=== PATIENT | female | born 1960 | race Hispanic/Latino ===

== ENCOUNTER 2020-12-30 10:17 | Inpatient (IN) | payer BC ==
[~2020-12-30] VITALS: Ht 152.4 cm; Wt 57.1 kg
[2020-12-30 10:44] LABS: ABG BASE EXCESS -1.6 mmol/L (-2.0-3.0); ABG HCO3 19.4 mmol/L (21.0-28.0); ABG OXYGEN SATURATION 95.3 % (95.0-99.0); ABG PCO2 25 mmHg (32-45)
[2020-12-30 10:46] LABS: BASOPHILS % (AUTO) 0.2 % (0.0-5.0); EOSINOPHILS % (AUTO) 0.5 % (0.0-8.0); HEMATOCRIT 39.5 % (36-48); LYMPHOCYTES % (AUTO) 1.8 % (21.0-51.0); MEAN CORPUSCULAR HEMOGLOBIN 26.4 pg (27.0-33.0); MEAN CORPUSCULAR HGB CONC 34.9 g/dL (32.0-36.0); MEAN CORPUSCULAR VOLUME 75.7 fL (79-99); MONOCYTES % (AUTO) 2.6 % (3.0-13.0); NEUTROPHILS % (AUTO) 94.2 % (40.0-77.0); PLATELET COUNT (AUTO) 256 K/uL (130-400); RED BLOOD CELL COUNT(AUTO) 5.22 MIL/uL (4.00-5.50); RED CELL DISTRIBUTION WIDTH 13.1 % (11.0-15.5); WHITE BLOOD COUNT (AUTO) 20.4 K/uL (4.8-10.8)
[2020-12-30 11:36] LABS: B-TYPE NATRIURETIC PEPTIDE 127 pg/mL (0-100)
[2020-12-30 11:52] LABS: ALBUMIN 2.5 g/dL (3.5-5.0); BILIRUBIN,TOTAL 1.2 mg/dL (0.2-1.0); CREATININE 0.8 mg/dL (0.5-1.5); TOTAL PROTEIN, SERUM 7.2 g/dL (6.0-8.3)
[2020-12-30 11:56] LABS: TROPONIN I 1.56 ng/mL (0.00-0.06)
[2020-12-30 12:15] LABS: INR 1.15 (0.85-1.15); PARTIAL THROMBOPLASTIN TIME 23.6 SEC (26.3-35.5); PROTHROMBIN TIME 11.9 SEC (9.6-11.6)
[2020-12-30] MEDS ORDERED: DEXAMETHASONE SOD PHOSPHATE 10MG/ML 1ML VIAL ONE (12:42)
[2020-12-30] MEDS ORDERED: ZOSYN 3.375GM+NS 50ML 50 ML IV ONE (12:43)
[2020-12-30] MEDS: CEFTRIAXONE 1G VIAL IVP SCH (13:00)
[2020-12-30] MEDS: PHARMACY COMMUNICATION MISC SCH ×3 (13:00→22:11)
[2020-12-30] MEDS ORDERED: ONDANSETRON 4MG INJ IV PRN (13:00)
[2020-12-30] MEDS ORDERED: LACTULOSE 20 GM/30 ML UDCUP PO PRN (13:00)
[2020-12-30] MEDS ORDERED: DEXAMETHASONE SOD PHOSPHATE 4 MG/ML 1ML VIAL IVP SCH (13:00)
[2020-12-30] MEDS ORDERED: ERGOCALCIFEROL (VITAMIN D2) 50,000 UNIT CAPSULE PO ONE (13:00)
[2020-12-30] MEDS ORDERED: ACETAMINOPHEN 325 MG TAB PO PRN ×2 (13:00)
[2020-12-30] MEDS ORDERED: IOHEXOL 350 MG/ML 100ML INFUS..BTL IV ONE (13:07)
[2020-12-30] MEDS ORDERED: POTASSIUM CHLORIDE 10MEQ/100ML 100 ML IV PRN (13:15)
[2020-12-30] MEDS ORDERED: POTASSIUM CHLORIDE 10% ELIXIR 20 MEQ/15 ML UDCUP PO PRN (13:15)
[2020-12-30] MEDS ORDERED: FUROSEMIDE 20MG VIAL IV SCH (13:15)
[2020-12-30] MEDS ORDERED: LIDOCAINE HCL-MPF 1% 2ML VIAL IV PRN (13:15)
[2020-12-30 13:16] LABS: APPEARANCE,URINE Clear (CLEAR); BILIRUBIN,URINE Negative (NEGATIVE); COLOR,URINE Yellow (YELLOW); GLUCOSE, URINE (UA) 500 mg/dL (NEGATIVE); KETONES,URINE Negative (NEGATIVE); LEUKOCYTE ESTERASE ,URINE Negative (NEGATIVE); NITRATE,URINE Negative (NEGATIVE); OCCULT BLOOD,URINE Moderate (NEGATIVE); PH,URINE 6.5 (5.0-8.0); PROTEIN,URINE POS 2+ mg/dL (NEGATIVE)
[2020-12-30 13:22] LABS: BACTERIA,URINE Rare /HPF (None Seen); RBC,URINE 0-1 /HPF (0-1); SQUAMOUS EPITHELIAL CELL,UR Rare /HPF (0-2); WBC,URINE 0-1 /HPF (0-1)
[2020-12-30] MEDS: ZINC SULFATE 220 CAPSULE PO SCH (13:30)
[2020-12-30 13:38] LABS: THYROID STIMULATING HORMONE 0.49 uIU/mL (0.36-3.74)
[2020-12-30 13:50] LABS: HEMOGLOBIN A1C 6.2 % (4.0-6.0)
[2020-12-30] MEDS ORDERED: FUROSEMIDE 20MG VIAL ONE (14:16)
[2020-12-30] MEDS ORDERED: CEFTRIAXONE 1G VIAL ONE (14:17)
[2020-12-30] MEDS ORDERED: ZINC SULFATE 220 CAPSULE ONE (14:17)
[2020-12-30] MEDS ORDERED: ASPIRIN 81MG CHEW TAB PO SCH (15:45)
[2020-12-30] MEDS ORDERED: PHARMACY COMMUNICATION MISC SCH (15:45)
[2020-12-30 16:22] LABS: CREATININE 0.8 mg/dL (0.5-1.5); POTASSIUM 3.5 mmol/L (3.5-5.1)
[2020-12-30] MEDS ORDERED: ASPIRIN 81MG CHEW TAB ONE (16:42)
[2020-12-30] MEDS ORDERED: ENOXAPARIN SODIUM 60 MG/0.6 ML SQ ONE (17:00)
[2020-12-30 17:15] VITALS: BP 111/56
[2020-12-30] MEDS: DEXAMETHASONE SOD PHOSPHATE 4 MG/ML 1ML VIAL IVP SCH (17:35)
[2020-12-30 20:00] VITALS: BP 107/52
[2020-12-30] MEDS: METOPROLOL TARTRATE 25 MG TAB PO SCH (22:14)
[2020-12-30] MEDS: FAMOTIDINE 20MG TAB PO SCH (22:14)
[2020-12-31] VITALS: BP 104/54
[2020-12-31] MEDS: PHARMACY COMMUNICATION MISC SCH ×6 (01:00→21:00)
[2020-12-31] MEDS: CEFTRIAXONE 1G VIAL IVP SCH ×2 (01:27→13:01)
[2020-12-31] MEDS: DEXAMETHASONE SOD PHOSPHATE 4 MG/ML 1ML VIAL IVP SCH ×2 (01:42→06:32)
[2020-12-31 04:00] VITALS: BP 117/60
[2020-12-31 04:59] LABS: BASOPHILS % (AUTO) 0.1 % (0.0-5.0); HEMATOCRIT 39.3 % (36-48); LYMPHOCYTES % (AUTO) 3.2 % (21.0-51.0); MEAN CORPUSCULAR HEMOGLOBIN 26.9 pg (27.0-33.0); MEAN CORPUSCULAR HGB CONC 35.1 g/dL (32.0-36.0); MEAN CORPUSCULAR VOLUME 76.6 fL (79-99); MONOCYTES % (AUTO) 3.7 % (3.0-13.0); NEUTROPHILS % (AUTO) 92.5 % (40.0-77.0); PLATELET COUNT (AUTO) 277 K/uL (130-400); RED BLOOD CELL COUNT(AUTO) 5.13 MIL/uL (4.00-5.50); RED CELL DISTRIBUTION WIDTH 13.4 % (11.0-15.5); WHITE BLOOD COUNT (AUTO) 14.3 K/uL (4.8-10.8)
[2020-12-31 05:22] LABS: ALBUMIN 2.3 g/dL (3.5-5.0); BILIRUBIN,TOTAL 0.6 mg/dL (0.2-1.0); CREATININE 0.8 mg/dL (0.5-1.5); POTASSIUM 3.2 mmol/L (3.5-5.1)
[2020-12-31 05:47] LABS: CRP QUANTITATIVE 329.3 mg/L (0.00-9.0)
[2020-12-31 08:17] VITALS: BP 122/55
[2020-12-31] MEDS: ASPIRIN 81MG CHEW TAB PO SCH (08:36)
[2020-12-31] MEDS: METOPROLOL TARTRATE 25 MG TAB PO SCH ×2 (08:36→20:15)
[2020-12-31] MEDS: FAMOTIDINE 20MG TAB PO SCH ×2 (08:36→20:11)
[2020-12-31] MEDS: ZINC SULFATE 220 CAPSULE PO SCH (08:36)
[2020-12-31] MEDS: ASCORBIC ACID 500 MG TAB PO SCH (08:36)
[2020-12-31] MEDS ORDERED: ENOXAPARIN SODIUM 60 MG/0.6 ML SQ SCH (09:00)
[2020-12-31] MEDS ORDERED: ENOXAPARIN SODIUM 40 MG/0.4 ML SYRINGE SQ SCH (09:00)
[2020-12-31] MEDS: KCL 20 MEQ ERTAB PO PRN ×3 (11:23→20:16)
[2020-12-31] MEDS ORDERED: TOCILIZUMAB IV ONE ×2 (11:45)
[2020-12-31] MEDS ORDERED: [UNRECOGNIZED DRUG - OTHER] IV ONE (11:45)
[2020-12-31] MEDS ORDERED: [UNRECOGNIZED DRUG - OTHER] IV ONE (11:45)
[2020-12-31 12:00] VITALS: BP 113/55
[2020-12-31] MEDS ORDERED: COMPOUND IV REFRIGERATED 1 EACH IVSOLN MISC PRN (14:00)
[2020-12-31] MEDS ORDERED: REMDESIVIR (EUA) 520 200 MG in 0.9% NACL 250ML 250 ML IV ONE (14:00)
[2020-12-31 16:14] VITALS: BP 106/50
[2020-12-31 20:00] VITALS: BP 99/52
[2020-12-31] MEDS: DOXYCYCLINE HYCLATE 100 MG TABLET PO SCH (20:11)
[2020-12-31] MEDS: ENOXAPARIN SODIUM 60 MG/0.6 ML SQ SCH (20:14)
[2020-12-31] MEDS ORDERED: DEXAMETHASONE SOD PHOSPHATE 4 MG/ML 1ML VIAL IVP SCH (21:00)
[2021-01-01] VITALS: BP 115/54
[2021-01-01] MEDS: PHARMACY COMMUNICATION MISC SCH ×6 (01:00→21:00)
[2021-01-01] MEDS: CEFTRIAXONE 1G VIAL IVP SCH ×3 (01:55→23:53)
[2021-01-01 04:00] VITALS: BP 109/49
[2021-01-01 05:14] LABS: BASOPHILS % (AUTO) 0.1 % (0.0-5.0); HEMATOCRIT 39.4 % (36-48); LYMPHOCYTES % (AUTO) 5.1 % (21.0-51.0); MEAN CORPUSCULAR HEMOGLOBIN 25.8 pg (27.0-33.0); MEAN CORPUSCULAR VOLUME 78.3 fL (79-99); MONOCYTES % (AUTO) 4.9 % (3.0-13.0); NEUTROPHILS % (AUTO) 88.9 % (40.0-77.0); PLATELET COUNT (AUTO) 323 K/uL (130-400); RED BLOOD CELL COUNT(AUTO) 5.03 MIL/uL (4.00-5.50); RED CELL DISTRIBUTION WIDTH 13.6 % (11.0-15.5); WHITE BLOOD COUNT (AUTO) 13.6 K/uL (4.8-10.8)
[2021-01-01 05:43] LABS: ALBUMIN 2.2 g/dL (3.5-5.0); BILIRUBIN,TOTAL 0.5 mg/dL (0.2-1.0); CREATININE 0.7 mg/dL (0.5-1.5); CRP QUANTITATIVE 152.8 mg/L (0.00-9.0); POTASSIUM 3.3 mmol/L (3.5-5.1); TOTAL PROTEIN, SERUM 6.5 g/dL (6.0-8.3)
[2021-01-01] MEDS: REMDESIVIR LABS MISC SCH (06:00)
[2021-01-01 08:00] VITALS: BP 116/59
[2021-01-01] MEDS: ZINC SULFATE 220 CAPSULE PO SCH (08:19)
[2021-01-01] MEDS: KCL 20 MEQ ERTAB PO PRN ×2 (08:19→12:41)
[2021-01-01] MEDS: DEXAMETHASONE SOD PHOSPHATE 4 MG/ML 1ML VIAL IV SCH ×2 (08:19→21:41)
[2021-01-01] MEDS: FAMOTIDINE 20MG TAB PO SCH ×2 (08:19→21:40)
[2021-01-01] MEDS: ASPIRIN 81MG CHEW TAB PO SCH (08:19)
[2021-01-01] MEDS: ASCORBIC ACID 500 MG TAB PO SCH (08:19)
[2021-01-01] MEDS: ENOXAPARIN SODIUM 60 MG/0.6 ML SQ SCH ×2 (08:20→21:41)
[2021-01-01] MEDS: DOXYCYCLINE HYCLATE 100 MG TABLET PO SCH ×2 (08:20→21:40)
[2021-01-01] MEDS: METOPROLOL TARTRATE 25 MG TAB PO SCH ×2 (08:25→21:40)
[2021-01-01] MEDS ORDERED: DEXAMETHASONE SOD PHOSPHATE 4 MG/ML 1ML VIAL IV SCH (09:00)
[2021-01-01 12:00] VITALS: BP 102/53
[2021-01-01] MEDS ORDERED: POTASSIUM CHLORIDE 20MEQ/100ML 100 ML IV PRN (14:15)
[2021-01-01] MEDS ORDERED: LIDOCAINE HCL-MPF 1% 2ML VIAL IV PRN (14:15)
[2021-01-01] MEDS ORDERED: KCL 20 MEQ ERTAB PO PRN (14:15)
[2021-01-01] MEDS ORDERED: POTASSIUM CHLORIDE 10% ELIXIR 20 MEQ/15 ML UDCUP PO PRN (14:15)
[2021-01-01 16:00] VITALS: BP 111/55
[2021-01-01 20:00] VITALS: BP 113/64
[2021-01-02] VITALS (8 sets, daily range): BP systolic 100–145; BP diastolic 40–85
[2021-01-02] MEDS: PHARMACY COMMUNICATION MISC SCH ×6 (01:00→21:00)
[2021-01-02 03:09] LABS: HEPATITIS B CORE IGM Negative (Negative); HEPATITIS Bs ANTIGEN SCREEN P Negative (Negative)
[2021-01-02 04:36] LABS: BASOPHILS % (AUTO) 0.2 % (0.0-5.0); HEMATOCRIT 40.4 % (36-48); LYMPHOCYTES % (AUTO) 3.5 % (21.0-51.0); MEAN CORPUSCULAR HEMOGLOBIN 26.7 pg (27.0-33.0); MEAN CORPUSCULAR HGB CONC 33.2 g/dL (32.0-36.0); MEAN CORPUSCULAR VOLUME 80.5 fL (79-99); MONOCYTES % (AUTO) 3.3 % (3.0-13.0); NEUTROPHILS % (AUTO) 92.2 % (40.0-77.0); PLATELET COUNT (AUTO) 358 K/uL (130-400); RED BLOOD CELL COUNT(AUTO) 5.02 MIL/uL (4.00-5.50); WHITE BLOOD COUNT (AUTO) 14.4 K/uL (4.8-10.8)
[2021-01-02 04:48] LABS: ALBUMIN 2.2 g/dL (3.5-5.0); BILIRUBIN,TOTAL 0.5 mg/dL (0.2-1.0); CREATININE 0.7 mg/dL (0.5-1.5); CRP QUANTITATIVE 100.3 mg/L (0.00-9.0); MAGNESIUM 2.5 mg/dL (1.80-2.40); POTASSIUM 4.4 mmol/L (3.5-5.1); TOTAL PROTEIN, SERUM 6.5 g/dL (6.0-8.3)
[2021-01-02] MEDS: REMDESIVIR LABS MISC SCH (06:00)
[2021-01-02] MEDS: ENOXAPARIN SODIUM 60 MG/0.6 ML SQ SCH ×2 (08:18→21:28)
[2021-01-02] MEDS: ASCORBIC ACID 500 MG TAB PO SCH (08:19)
[2021-01-02] MEDS: METOPROLOL TARTRATE 25 MG TAB PO SCH ×2 (08:19→21:28)
[2021-01-02] MEDS: FAMOTIDINE 20MG TAB PO SCH ×2 (08:19→21:25)
[2021-01-02] MEDS: DEXAMETHASONE SOD PHOSPHATE 4 MG/ML 1ML VIAL IV SCH ×2 (08:19→21:25)
[2021-01-02] MEDS: ZINC SULFATE 220 CAPSULE PO SCH (08:19)
[2021-01-02] MEDS: DOXYCYCLINE HYCLATE 100 MG TABLET PO SCH ×2 (08:19→21:25)
[2021-01-02] MEDS: ASPIRIN 81MG CHEW TAB PO SCH (08:20)
[2021-01-02] MEDS: CEFTRIAXONE 1G VIAL IVP SCH (12:19)
[2021-01-02] MEDS: REMDESIVIR (EUA) 520 100 MG in 0.9% NACL 250ML 250 ML IV SCH (14:08)
[2021-01-03] MEDS: PHARMACY COMMUNICATION MISC SCH ×6 (01:00→21:00)
[2021-01-03] MEDS: CEFTRIAXONE 1G VIAL IVP SCH ×2 (01:28→14:16)
[2021-01-03 04:12] VITALS: BP 139/81
[2021-01-03 05:01] LABS: ALBUMIN 2.3 g/dL (3.5-5.0); BILIRUBIN,TOTAL 0.4 mg/dL (0.2-1.0); CREATININE 0.7 mg/dL (0.5-1.5); CRP QUANTITATIVE 75.3 mg/L (0.00-9.0); POTASSIUM 4.9 mmol/L (3.5-5.1); TOTAL PROTEIN, SERUM 6.8 g/dL (6.0-8.3)
[2021-01-03] MEDS: REMDESIVIR LABS MISC SCH (06:00)
[2021-01-03] MEDS ORDERED: AMLODIPINE 5 MG TAB ONE (07:05)
[2021-01-03 07:46] VITALS: BP 118/54
[2021-01-03] MEDS: ZINC SULFATE 220 CAPSULE PO SCH (08:34)
[2021-01-03] MEDS: DEXAMETHASONE SOD PHOSPHATE 4 MG/ML 1ML VIAL IV SCH ×2 (08:34→22:04)
[2021-01-03] MEDS: ASCORBIC ACID 500 MG TAB PO SCH (08:34)
[2021-01-03] MEDS: ASPIRIN 81MG CHEW TAB PO SCH (08:34)
[2021-01-03] MEDS: DOXYCYCLINE HYCLATE 100 MG TABLET PO SCH ×2 (08:34→22:04)
[2021-01-03] MEDS: ENOXAPARIN SODIUM 60 MG/0.6 ML SQ SCH ×2 (08:34→22:08)
[2021-01-03] MEDS: FAMOTIDINE 20MG TAB PO SCH ×2 (08:34→22:04)
[2021-01-03] MEDS: METOPROLOL TARTRATE 25 MG TAB PO SCH ×2 (08:34→22:04)
[2021-01-03 12:00] VITALS: BP 101/49
[2021-01-03] MEDS: REMDESIVIR (EUA) 520 100 MG in 0.9% NACL 250ML 250 ML IV SCH (14:17)
[2021-01-03 16:00] VITALS: BP 112/58
[2021-01-03 20:53] VITALS: BP 133/62
[2021-01-03 23:55] VITALS: BP 123/64
[2021-01-04] MEDS: CEFTRIAXONE 1G VIAL IVP SCH ×2 (02:30→13:18)
[2021-01-04 03:51] VITALS: BP 102/55
[2021-01-04 06:36] LABS: BASOPHILS % (AUTO) 0.2 % (0.0-5.0); MEAN CORPUSCULAR HEMOGLOBIN 25.8 pg (27.0-33.0); MEAN CORPUSCULAR HGB CONC 32.3 g/dL (32.0-36.0); MEAN CORPUSCULAR VOLUME 79.8 fL (79-99); MONOCYTES % (AUTO) 2.9 % (3.0-13.0); NEUTROPHILS % (AUTO) 91.5 % (40.0-77.0); PLATELET COUNT (AUTO) 551 K/uL (130-400); RED BLOOD CELL COUNT(AUTO) 5.39 MIL/uL (4.00-5.50); RED CELL DISTRIBUTION WIDTH 13.9 % (11.0-15.5); WHITE BLOOD COUNT (AUTO) 16.2 K/uL (4.8-10.8)
[2021-01-04 07:01] LABS: ALBUMIN 2.4 g/dL (3.5-5.0); BILIRUBIN,TOTAL 0.4 mg/dL (0.2-1.0); CREATININE 0.6 mg/dL (0.5-1.5); POTASSIUM 4.4 mmol/L (3.5-5.1); TOTAL PROTEIN, SERUM 6.6 g/dL (6.0-8.3)
[2021-01-04] MEDS: DEXAMETHASONE SOD PHOSPHATE 4 MG/ML 1ML VIAL IV SCH ×2 (08:00→21:37)
[2021-01-04] MEDS: METOPROLOL TARTRATE 25 MG TAB PO SCH ×2 (08:01→21:36)
[2021-01-04] MEDS: FAMOTIDINE 20MG TAB PO SCH ×2 (08:01→21:36)
[2021-01-04] MEDS: DOXYCYCLINE HYCLATE 100 MG TABLET PO SCH ×2 (08:01→21:36)
[2021-01-04] MEDS: ASPIRIN 81MG CHEW TAB PO SCH (08:01)
[2021-01-04] MEDS: ENOXAPARIN SODIUM 60 MG/0.6 ML SQ SCH ×2 (08:02→21:37)
[2021-01-04] MEDS: ZINC SULFATE 220 CAPSULE PO SCH (08:02)
[2021-01-04] MEDS: ASCORBIC ACID 500 MG TAB PO SCH (08:02)
[2021-01-04 09:23] VITALS: BP 126/57
[2021-01-04 11:59] VITALS: BP 101/55
[2021-01-04] MEDS: REMDESIVIR (EUA) 520 100 MG in 0.9% NACL 250ML 250 ML IV SCH (13:18)
[2021-01-04 16:00] VITALS: BP 112/57
[2021-01-04 19:00] VITALS: BP 104/64
[2021-01-04 23:00] VITALS: BP 128/69
[2021-01-05] MEDS: CEFTRIAXONE 1G VIAL IVP SCH ×2 (02:13→13:16)
[2021-01-05 07:52] VITALS: BP 99/56
[2021-01-05] MEDS: DOXYCYCLINE HYCLATE 100 MG TABLET PO SCH ×2 (10:15→20:06)
[2021-01-05] MEDS: ASCORBIC ACID 500 MG TAB PO SCH (10:15)
[2021-01-05] MEDS: ENOXAPARIN SODIUM 60 MG/0.6 ML SQ SCH ×2 (10:15→20:07)
[2021-01-05] MEDS: FAMOTIDINE 20MG TAB PO SCH ×2 (10:15→20:06)
[2021-01-05] MEDS: ZINC SULFATE 220 CAPSULE PO SCH (10:16)
[2021-01-05] MEDS: ASPIRIN 81MG CHEW TAB PO SCH (10:16)
[2021-01-05] MEDS: DEXAMETHASONE SOD PHOSPHATE 4 MG/ML 1ML VIAL IV SCH ×2 (10:16→20:06)
[2021-01-05] MEDS: METOPROLOL TARTRATE 25 MG TAB PO SCH ×2 (10:16→20:06)
[2021-01-05 12:00] VITALS: BP 115/58
[2021-01-05 13:57] LABS: ALBUMIN 2.3 g/dL (3.5-5.0); BILIRUBIN,TOTAL 0.3 mg/dL (0.2-1.0); CREATININE 0.6 mg/dL (0.5-1.5); POTASSIUM 4.2 mmol/L (3.5-5.1); TOTAL PROTEIN, SERUM 6.3 g/dL (6.0-8.3)
[2021-01-05 16:31] VITALS: BP 112/53
[2021-01-05 19:00] VITALS: BP 104/66
[2021-01-05 23:00] VITALS: BP 95/50
[2021-01-06] MEDS: CEFTRIAXONE 1G VIAL IVP SCH (01:55)
[2021-01-06 03:00] VITALS: BP 113/55
[2021-01-06 06:39] LABS: CRP QUANTITATIVE 184.9 mg/L (0.00-9.0)
[2021-01-06 07:00] VITALS: BP 131/57
[2021-01-06] MEDS: ZINC SULFATE 220 CAPSULE PO SCH (08:59)
[2021-01-06] MEDS: ASPIRIN 81MG CHEW TAB PO SCH (08:59)
[2021-01-06] MEDS: DOXYCYCLINE HYCLATE 100 MG TABLET PO SCH ×2 (08:59→21:38)
[2021-01-06] MEDS: ASCORBIC ACID 500 MG TAB PO SCH (08:59)
[2021-01-06] MEDS: ENOXAPARIN SODIUM 60 MG/0.6 ML SQ SCH ×2 (09:00→21:44)
[2021-01-06] MEDS: METOPROLOL TARTRATE 25 MG TAB PO SCH ×2 (09:00→21:38)
[2021-01-06] MEDS: FAMOTIDINE 20MG TAB PO SCH ×2 (09:00→21:38)
[2021-01-06] MEDS: DEXAMETHASONE SOD PHOSPHATE 4 MG/ML 1ML VIAL IV SCH ×2 (09:00→21:38)
[2021-01-06 11:00] VITALS: BP 118/57
[2021-01-06 16:00] VITALS: BP 107/60
[2021-01-06] MEDS ORDERED: SOLU-MEDROL 125MG VIAL IV SCH (16:51)
[2021-01-06 19:36] VITALS: BP 126/58
[2021-01-06] MEDS: CLONAZEPAM 0.5 MG TABLET PO SCH (21:38)
[2021-01-06 23:29] VITALS: BP 119/65
[2021-01-07 03:02] VITALS: BP 117/62
[2021-01-07 04:46] LABS: BASOPHILS % (AUTO) 0.1 % (0.0-5.0); HEMATOCRIT 38.7 % (36-48); LYMPHOCYTES % (AUTO) 4.8 % (21.0-51.0); MEAN CORPUSCULAR HEMOGLOBIN 26.9 pg (27.0-33.0); MEAN CORPUSCULAR HGB CONC 33.9 g/dL (32.0-36.0); MEAN CORPUSCULAR VOLUME 79.5 fL (79-99); MONOCYTES % (AUTO) 2.9 % (3.0-13.0); PLATELET COUNT (AUTO) 457 K/uL (130-400); RED BLOOD CELL COUNT(AUTO) 4.87 MIL/uL (4.00-5.50); RED CELL DISTRIBUTION WIDTH 14.3 % (11.0-15.5); WHITE BLOOD COUNT (AUTO) 7.6 K/uL (4.8-10.8)
[2021-01-07 05:04] LABS: BILIRUBIN,TOTAL 0.4 mg/dL (0.2-1.0); CREATININE 0.5 mg/dL (0.5-1.5); CRP QUANTITATIVE 114.3 mg/L (0.00-9.0); POTASSIUM 4.5 mmol/L (3.5-5.1); TOTAL PROTEIN, SERUM 6.1 g/dL (6.0-8.3)
[2021-01-07 07:00] VITALS: BP 125/70
[2021-01-07] MEDS: FAMOTIDINE 20MG TAB PO SCH ×2 (09:13→20:12)
[2021-01-07] MEDS: METOPROLOL TARTRATE 25 MG TAB PO SCH ×2 (09:13→20:13)
[2021-01-07] MEDS: CLONAZEPAM 0.5 MG TABLET PO SCH ×2 (09:13→20:12)
[2021-01-07] MEDS: DEXAMETHASONE SOD PHOSPHATE 4 MG/ML 1ML VIAL IV SCH (09:13)
[2021-01-07] MEDS: DOXYCYCLINE HYCLATE 100 MG TABLET PO SCH ×2 (09:13→20:12)
[2021-01-07] MEDS: ASPIRIN 81MG CHEW TAB PO SCH (09:13)
[2021-01-07] MEDS: ASCORBIC ACID 500 MG TAB PO SCH (09:13)
[2021-01-07] MEDS: ZINC SULFATE 220 CAPSULE PO SCH (09:13)
[2021-01-07] MEDS: ENOXAPARIN SODIUM 60 MG/0.6 ML SQ SCH ×2 (09:14→20:13)
[2021-01-07 11:00] VITALS: BP 111/53
[2021-01-07 16:00] VITALS: BP 109/54
[2021-01-07 19:10] VITALS: BP 119/66
[2021-01-07] MEDS: SOLU-MEDROL 125MG VIAL IVP SCH (20:13)
[2021-01-07 23:14] VITALS: BP 109/61
[2021-01-08 03:44] VITALS: BP 116/66
[2021-01-08 06:09] LABS: BASOPHILS % (AUTO) 0.1 % (0.0-5.0); HEMATOCRIT 39.5 % (36-48); LYMPHOCYTES % (AUTO) 4.3 % (21.0-51.0); MEAN CORPUSCULAR HEMOGLOBIN 26.7 pg (27.0-33.0); MEAN CORPUSCULAR HGB CONC 33.2 g/dL (32.0-36.0); MEAN CORPUSCULAR VOLUME 80.6 fL (79-99); MONOCYTES % (AUTO) 1.8 % (3.0-13.0); NEUTROPHILS % (AUTO) 92.5 % (40.0-77.0); PLATELET COUNT (AUTO) 456 K/uL (130-400); RED CELL DISTRIBUTION WIDTH 14.3 % (11.0-15.5); WHITE BLOOD COUNT (AUTO) 9.5 K/uL (4.8-10.8)
[2021-01-08 06:14] LABS: ALBUMIN 2.1 g/dL (3.5-5.0); BILIRUBIN,TOTAL 0.4 mg/dL (0.2-1.0); CREATININE 0.6 mg/dL (0.5-1.5); POTASSIUM 4.6 mmol/L (3.5-5.1); TOTAL PROTEIN, SERUM 6.1 g/dL (6.0-8.3)
[2021-01-08 08:00] VITALS: BP 107/61
[2021-01-08] MEDS: FAMOTIDINE 20MG TAB PO SCH (09:27)
[2021-01-08] MEDS: CLONAZEPAM 0.5 MG TABLET PO SCH ×2 (09:27→21:35)
[2021-01-08] MEDS: ASPIRIN 81MG CHEW TAB PO SCH (09:27)
[2021-01-08] MEDS: ASCORBIC ACID 500 MG TAB PO SCH (09:27)
[2021-01-08] MEDS: ZINC SULFATE 220 CAPSULE PO SCH (09:27)
[2021-01-08] MEDS: METOPROLOL TARTRATE 25 MG TAB PO SCH ×2 (09:27→21:34)
[2021-01-08] MEDS: DOXYCYCLINE HYCLATE 100 MG TABLET PO SCH (09:27)
[2021-01-08] MEDS: SOLU-MEDROL 125MG VIAL IVP SCH (09:28)
[2021-01-08] MEDS: ENOXAPARIN SODIUM 60 MG/0.6 ML SQ SCH (09:28)
[2021-01-08 12:11] VITALS: BP 116/58
[2021-01-08 16:00] VITALS: BP 106/54
[2021-01-08 20:00] VITALS: BP 116/59
[2021-01-08] MEDS: DEXAMETHASONE SOD PHOSPHATE 4 MG/ML 1ML VIAL IVP SCH (21:35)
[2021-01-09] VITALS: BP 110/54
[2021-01-09 04:00] VITALS: BP 110/53
[2021-01-09 04:31] LABS: BASOPHILS % (AUTO) 0.1 % (0.0-5.0); HEMATOCRIT 40.2 % (36-48); LYMPHOCYTES % (AUTO) 4.7 % (21.0-51.0); MEAN CORPUSCULAR HEMOGLOBIN 26.6 pg (27.0-33.0); MEAN CORPUSCULAR HGB CONC 33.3 g/dL (32.0-36.0); MEAN CORPUSCULAR VOLUME 79.9 fL (79-99); MONOCYTES % (AUTO) 3.7 % (3.0-13.0); NEUTROPHILS % (AUTO) 90.1 % (40.0-77.0); PLATELET COUNT (AUTO) 493 K/uL (130-400); RED BLOOD CELL COUNT(AUTO) 5.03 MIL/uL (4.00-5.50); RED CELL DISTRIBUTION WIDTH 14.1 % (11.0-15.5); WHITE BLOOD COUNT (AUTO) 13.6 K/uL (4.8-10.8)
[2021-01-09 04:48] LABS: ALBUMIN 2.2 g/dL (3.5-5.0); BILIRUBIN,TOTAL 0.4 mg/dL (0.2-1.0); CREATININE 0.6 mg/dL (0.5-1.5); CRP QUANTITATIVE 23.6 mg/L (0.00-9.0); POTASSIUM 4.4 mmol/L (3.5-5.1); TOTAL PROTEIN, SERUM 6.1 g/dL (6.0-8.3)
[2021-01-09 08:00] VITALS: BP 110/54
[2021-01-09] MEDS: DEXAMETHASONE SOD PHOSPHATE 4 MG/ML 1ML VIAL IVP SCH ×2 (08:20→20:03)
[2021-01-09] MEDS: ENOXAPARIN SODIUM 60 MG/0.6 ML SQ SCH (08:21)
[2021-01-09] MEDS: ASPIRIN 81MG CHEW TAB PO SCH (08:21)
[2021-01-09] MEDS: METOPROLOL TARTRATE 25 MG TAB PO SCH ×2 (08:21→20:03)
[2021-01-09] MEDS: CLONAZEPAM 0.5 MG TABLET PO SCH (08:21)
[2021-01-09 11:50] VITALS: BP 109/50
[2021-01-09 15:47] VITALS: BP 104/54
[2021-01-09 20:00] VITALS: BP 115/70
[2021-01-10] VITALS (7 sets, daily range): BP systolic 107–128; BP diastolic 46–74
[2021-01-10 04:56] LABS: BASOPHILS % (AUTO) 0.1 % (0.0-5.0); HEMATOCRIT 44.7 % (36-48); LYMPHOCYTES % (AUTO) 4.5 % (21.0-51.0); MEAN CORPUSCULAR HEMOGLOBIN 26.1 pg (27.0-33.0); MEAN CORPUSCULAR HGB CONC 32.7 g/dL (32.0-36.0); MONOCYTES % (AUTO) 3.2 % (3.0-13.0); NEUTROPHILS % (AUTO) 90.8 % (40.0-77.0); PLATELET COUNT (AUTO) 497 K/uL (130-400); RED BLOOD CELL COUNT(AUTO) 5.59 MIL/uL (4.00-5.50); RED CELL DISTRIBUTION WIDTH 13.7 % (11.0-15.5); WHITE BLOOD COUNT (AUTO) 15.2 K/uL (4.8-10.8)
[2021-01-10 05:12] LABS: ALBUMIN 2.5 g/dL (3.5-5.0); BILIRUBIN,TOTAL 0.5 mg/dL (0.2-1.0); CREATININE 0.5 mg/dL (0.5-1.5); CRP QUANTITATIVE 14.2 mg/L (0.00-9.0); POTASSIUM 4.1 mmol/L (3.5-5.1); TOTAL PROTEIN, SERUM 6.7 g/dL (6.0-8.3)
[2021-01-10] MEDS: ASPIRIN 81MG CHEW TAB PO SCH (08:32)
[2021-01-10] MEDS: ENOXAPARIN SODIUM 60 MG/0.6 ML SQ SCH (08:32)
[2021-01-10] MEDS: METOPROLOL TARTRATE 25 MG TAB PO SCH ×2 (08:32→20:13)
[2021-01-10] MEDS: DEXAMETHASONE SOD PHOSPHATE 4 MG/ML 1ML VIAL IVP SCH ×2 (08:33→20:13)
[2021-01-11 03:02] VITALS: BP 120/64
[2021-01-11 04:21] LABS: BASOPHILS % (AUTO) 0.1 % (0.0-5.0); HEMATOCRIT 40.4 % (36-48); LYMPHOCYTES % (AUTO) 4.2 % (21.0-51.0); MEAN CORPUSCULAR HEMOGLOBIN 26.1 pg (27.0-33.0); MEAN CORPUSCULAR HGB CONC 32.7 g/dL (32.0-36.0); MONOCYTES % (AUTO) 3.8 % (3.0-13.0); NEUTROPHILS % (AUTO) 90.9 % (40.0-77.0); PLATELET COUNT (AUTO) 382 K/uL (130-400); RED BLOOD CELL COUNT(AUTO) 5.05 MIL/uL (4.00-5.50); RED CELL DISTRIBUTION WIDTH 13.8 % (11.0-15.5); WHITE BLOOD COUNT (AUTO) 14.2 K/uL (4.8-10.8)
[2021-01-11 04:39] LABS: ALBUMIN 2.3 g/dL (3.5-5.0); BILIRUBIN,TOTAL 0.4 mg/dL (0.2-1.0); CREATININE 0.5 mg/dL (0.5-1.5); TOTAL PROTEIN, SERUM 5.8 g/dL (6.0-8.3)
[2021-01-11 08:00] VITALS: BP 122/70
[2021-01-11] MEDS: ASPIRIN 81MG CHEW TAB PO SCH (08:35)
[2021-01-11] MEDS: DEXAMETHASONE SOD PHOSPHATE 4 MG/ML 1ML VIAL IVP SCH ×2 (08:35→20:20)
[2021-01-11] MEDS: METOPROLOL TARTRATE 25 MG TAB PO SCH ×2 (08:36→20:20)
[2021-01-11] MEDS: ENOXAPARIN SODIUM 60 MG/0.6 ML SQ SCH (08:36)
[2021-01-11 11:53] VITALS: BP 110/49
[2021-01-11 16:00] VITALS: BP 112/69
[2021-01-11 19:06] VITALS: BP 104/55
[2021-01-11 23:56] VITALS: BP 97/46
[2021-01-12 03:31] VITALS: BP 110/67
[2021-01-12 05:04] LABS: HEMATOCRIT 38.1 % (36-48); MEAN CORPUSCULAR HEMOGLOBIN 26.8 pg (27.0-33.0); MEAN CORPUSCULAR HGB CONC 33.9 g/dL (32.0-36.0); MEAN CORPUSCULAR VOLUME 79.2 fL (79-99); RED BLOOD CELL COUNT(AUTO) 4.81 MIL/uL (4.00-5.50); RED CELL DISTRIBUTION WIDTH 13.8 % (11.0-15.5); WHITE BLOOD COUNT (AUTO) 15.1 K/uL (4.8-10.8)
[2021-01-12 05:20] LABS: ALBUMIN 2.2 g/dL (3.5-5.0); BILIRUBIN,TOTAL 0.5 mg/dL (0.2-1.0); CREATININE 0.5 mg/dL (0.5-1.5); CRP QUANTITATIVE 7.2 mg/L (0.00-9.0); MAGNESIUM 2.3 mg/dL (1.80-2.40); PHOSPHORUS 3.9 mg/dL (2.5-4.9); POTASSIUM 4.1 mmol/L (3.5-5.1); TOTAL PROTEIN, SERUM 5.7 g/dL (6.0-8.3)
[2021-01-12 07:00] VITALS: BP_SYST 104; BP_SYST 114; BP_DIAS 72; BP_DIAS 98
[2021-01-12] MEDS ORDERED: DEXAMETHASONE SOD PHOSPHATE 4 MG/ML 1ML VIAL IVP SCH (08:30)
[2021-01-12] MEDS: ASPIRIN 81MG CHEW TAB PO SCH (08:34)
[2021-01-12] MEDS: METOPROLOL TARTRATE 25 MG TAB PO SCH (08:34)
[2021-01-12] MEDS: ENOXAPARIN SODIUM 60 MG/0.6 ML SQ SCH (08:35)
[2021-01-12 12:00] VITALS: BP 104/78
[2021-01-12 16:00] VITALS: BP 104/70
== END 2021-01-12 18:35 | DRG 177 ==
LOC: EDH 10:17 → EDHIP 12:51 → 2AH 16:36
PROVIDERS: ADMIT Internal Medicine; ATTEND Internal Medicine
PROC: XW033E5 Introduction of Remdesivir Anti-infective into Peripheral Vein, Percutaneous Approach, New Technology Group 5 (ICD-10-PCS; principal; 2020-12-31)
DX: U07.1 COVID-19 (principal); J96.01 Acute respiratory failure with hypoxia; J12.82 Pneumonia due to coronavirus disease 2019; E87.1 Hypo-osmolality and hyponatremia; E87.6 Hypokalemia; R74.01 Elevation of levels of liver transaminase levels; R79.82 Elevated C-reactive protein (CRP); R74.8 Abnormal levels of other serum enzymes; R73.03 Prediabetes; Z79.82 Long term (current) use of aspirin; R77.8 Other specified abnormalities of plasma proteins; R79.89 Other specified abnormal findings of blood chemistry
CPT/HCPCS: 36415; 36600; 71045; 71275; 76705; 80048; 80053; 80061; 80074; 81001; 82550; 82728; 82803; 83036; 83605; 83615; 83735; 83874; 83880; 83935; 84100; 84145; 84300; 84443; 84484; 85025; 85027; 85378; 85610; 85730; 86140; 86900; 86901; 87040; 87426; 93005; 93970; 97039; 99291; G0378; J0696; J1100; J1650; J1940; J2543; J2930; J7050; Q9967

== ENCOUNTER 2021-01-13 01:31 | Inpatient (IN) | payer BC ==
[~2021-01-13] VITALS: Ht 157.5 cm; Wt 51.3 kg
[2021-01-13 01:53] LABS: BASOPHILS % (AUTO) 0.2 % (0.0-5.0); EOSINOPHILS % (AUTO) 0.3 % (0.0-8.0); HEMATOCRIT 40.1 % (36-48); LYMPHOCYTES % (AUTO) 5.5 % (21.0-51.0); MEAN CORPUSCULAR HEMOGLOBIN 27.2 pg (27.0-33.0); MEAN CORPUSCULAR HGB CONC 34.4 g/dL (32.0-36.0); MEAN CORPUSCULAR VOLUME 78.9 fL (79-99); MONOCYTES % (AUTO) 4.8 % (3.0-13.0); NEUTROPHILS % (AUTO) 88.4 % (40.0-77.0); PLATELET COUNT (AUTO) 337 K/uL (130-400); RED BLOOD CELL COUNT(AUTO) 5.08 MIL/uL (4.00-5.50); WHITE BLOOD COUNT (AUTO) 19.5 K/uL (4.8-10.8)
[2021-01-13 02:05] LABS: CREATININE 0.5 mg/dL (0.5-1.5); POTASSIUM 3.6 mmol/L (3.5-5.1)
[2021-01-13 02:07] LABS: INR 1.05 (0.85-1.15); PROTHROMBIN TIME 11.4 SEC (9.6-11.6)
[2021-01-13 02:09] LABS: PARTIAL THROMBOPLASTIN TIME 21.9 SEC (26.3-35.5)
[2021-01-13 02:10] LABS: ALBUMIN 2.5 g/dL (3.5-5.0); BILIRUBIN,TOTAL 0.7 mg/dL (0.2-1.0); TOTAL PROTEIN, SERUM 6.3 g/dL (6.0-8.3)
[2021-01-13 02:21] LABS: ABG BASE EXCESS 3.2 mmol/L (-2.0-3.0); ABG HCO3 26.5 mmol/L (21.0-28.0); ABG PCO2 36 mmHg (32-45)
[2021-01-13] MEDS ORDERED: IOHEXOL-350 75 ML VIAL IV ONE (02:27)
[2021-01-13] MEDS ORDERED: ZOSYN 3.375GM+NS 50ML 50 ML IV ONE (03:27)
[2021-01-13] MEDS ORDERED: GUAIFENESIN-DM 200/20 MG 10 ML PO PRN (03:30)
[2021-01-13] MEDS ORDERED: ONDANSETRON 4MG INJ IV PRN (03:30)
[2021-01-13] MEDS ORDERED: ACETAMINOPHEN 325 MG TAB PO PRN ×2 (03:30)
[2021-01-13] MEDS ORDERED: ACETAMINOPHEN WITH CODEINE 1 TAB TAB PO PRN (03:30)
[2021-01-13] MEDS ORDERED: MAG/ALUM/SIMETH 30 ML UDCUP PO PRN (03:30)
[2021-01-13] MEDS ORDERED: LACTULOSE 20 GM/30 ML UDCUP PO PRN (03:30)
[2021-01-13] MEDS ORDERED: HYDRALAZINE 20MG/ML VIAL IV PRN (03:30)
[2021-01-13] MEDS ORDERED: ALPRAZOLAM 0.5 MG TABLET PO PRN (04:45)
[2021-01-13 05:44] VITALS: BP 118/64
[2021-01-13] MEDS: ZOSYN 3.375GM+NS 50ML 50 ML IV SCH ×3 (06:00→20:44)
[2021-01-13] MEDS: INSULIN HUMULIN R 100 UNIT/ML 3ML SQ SCH ×4 (06:25→20:34)
[2021-01-13 08:00] VITALS: BP 122/68
[2021-01-13] MEDS: ASCORBIC ACID 500 MG TAB PO SCH (08:24)
[2021-01-13] MEDS: ASPIRIN 81 MG EC TAB PO SCH (08:24)
[2021-01-13] MEDS: ZINC SULFATE 220 CAPSULE PO SCH (08:24)
[2021-01-13] MEDS: ENOXAPARIN SODIUM 40 MG/0.4 ML SYRINGE SQ SCH (08:26)
[2021-01-13] MEDS ORDERED: FAMOTIDINE 20MG VIAL IV SCH (09:00)
[2021-01-13 11:00] VITALS: BP 105/49
[2021-01-13 15:47] VITALS: BP 101/41
[2021-01-13 20:23] VITALS: BP 92/54
[2021-01-13] MEDS: FAMOTIDINE 20MG TAB PO SCH (20:44)
[2021-01-14 00:12] VITALS: BP 98/49
[2021-01-14 04:32] VITALS: BP 107/41
[2021-01-14] MEDS: ZOSYN 3.375GM+NS 50ML 50 ML IV SCH (05:33)
[2021-01-14] MEDS: INSULIN HUMULIN R 100 UNIT/ML 3ML SQ SCH ×4 (06:06→20:10)
[2021-01-14 08:00] VITALS: BP 112/59
[2021-01-14] MEDS: ASPIRIN 81 MG EC TAB PO SCH (09:21)
[2021-01-14] MEDS: FAMOTIDINE 20MG TAB PO SCH (09:22)
[2021-01-14] MEDS: ASCORBIC ACID 500 MG TAB PO SCH (09:22)
[2021-01-14] MEDS: DEXAMETHASONE 4 MG TAB PO SCH (09:22)
[2021-01-14] MEDS: ZINC SULFATE 220 CAPSULE PO SCH (09:22)
[2021-01-14] MEDS: ENOXAPARIN SODIUM 40 MG/0.4 ML SYRINGE SQ SCH (09:27)
[2021-01-14 12:00] VITALS: BP 106/52
[2021-01-14 16:00] VITALS: BP 106/54
[2021-01-14 19:53] VITALS: BP 107/58
[2021-01-15] VITALS (7 sets, daily range): BP systolic 101–119; BP diastolic 51–67
[2021-01-15 04:31] LABS: BASOPHILS % (AUTO) 0.1 % (0.0-5.0); EOSINOPHILS % (AUTO) 1.7 % (0.0-8.0); HEMATOCRIT 37.6 % (36-48); LYMPHOCYTES % (AUTO) 8.7 % (21.0-51.0); MEAN CORPUSCULAR HEMOGLOBIN 27.1 pg (27.0-33.0); MEAN CORPUSCULAR HGB CONC 34.3 g/dL (32.0-36.0); MONOCYTES % (AUTO) 7.6 % (3.0-13.0); NEUTROPHILS % (AUTO) 81.3 % (40.0-77.0); PLATELET COUNT (AUTO) 194 K/uL (130-400); RED BLOOD CELL COUNT(AUTO) 4.76 MIL/uL (4.00-5.50); RED CELL DISTRIBUTION WIDTH 13.9 % (11.0-15.5); WHITE BLOOD COUNT (AUTO) 10.1 K/uL (4.8-10.8)
[2021-01-15 05:18] LABS: CREATININE 0.5 mg/dL (0.5-1.5); POTASSIUM 3.8 mmol/L (3.5-5.1)
[2021-01-15] MEDS: INSULIN HUMULIN R 100 UNIT/ML 3ML SQ SCH ×4 (06:14→20:31)
[2021-01-15] MEDS: ENOXAPARIN SODIUM 40 MG/0.4 ML SYRINGE SQ SCH (08:43)
[2021-01-15] MEDS: ASPIRIN 81 MG EC TAB PO SCH (08:43)
[2021-01-15] MEDS: DEXAMETHASONE 4 MG TAB PO SCH (08:43)
[2021-01-15] MEDS: SENNOSIDES 8.6 MG TABLET PO SCH (10:48)
[2021-01-15] MEDS: DOCUSATE SODIUM 100 MG CAP PO SCH (20:21)
[2021-01-16 03:59] VITALS: BP 109/53
[2021-01-16 05:02] LABS: BASOPHILS % (AUTO) 0.1 % (0.0-5.0); EOSINOPHILS % (AUTO) 2.1 % (0.0-8.0); HEMATOCRIT 37.9 % (36-48); LYMPHOCYTES % (AUTO) 8.9 % (21.0-51.0); MEAN CORPUSCULAR HEMOGLOBIN 26.5 pg (27.0-33.0); MEAN CORPUSCULAR HGB CONC 33.2 g/dL (32.0-36.0); MEAN CORPUSCULAR VOLUME 79.6 fL (79-99); MONOCYTES % (AUTO) 6.6 % (3.0-13.0); NEUTROPHILS % (AUTO) 81.6 % (40.0-77.0); PLATELET COUNT (AUTO) 207 K/uL (130-400); RED BLOOD CELL COUNT(AUTO) 4.76 MIL/uL (4.00-5.50); RED CELL DISTRIBUTION WIDTH 13.9 % (11.0-15.5); WHITE BLOOD COUNT (AUTO) 11.4 K/uL (4.8-10.8)
[2021-01-16 05:18] LABS: CREATININE 0.5 mg/dL (0.5-1.5); CRP QUANTITATIVE 24.2 mg/L (0.00-9.0); POTASSIUM 3.3 mmol/L (3.5-5.1)
[2021-01-16] MEDS ORDERED: KCL 20 MEQ ERTAB PO ONE (05:43)
[2021-01-16] MEDS ORDERED: POTASSIUM CHLORIDE 10% ELIXIR 20 MEQ/15 ML UDCUP PO PRN (05:45)
[2021-01-16] MEDS ORDERED: LIDOCAINE HCL-MPF 1% 2ML VIAL IV PRN (05:45)
[2021-01-16] MEDS ORDERED: POTASSIUM CHLORIDE 20MEQ/100ML 100 ML IV PRN ×2 (05:45)
[2021-01-16] MEDS: INSULIN HUMULIN R 100 UNIT/ML 3ML SQ SCH ×2 (06:02→11:30)
[2021-01-16 08:00] VITALS: BP 102/42
[2021-01-16] MEDS: SENNOSIDES 8.6 MG TABLET PO SCH (08:31)
[2021-01-16] MEDS: ASPIRIN 81 MG EC TAB PO SCH (08:31)
[2021-01-16] MEDS: DOCUSATE SODIUM 100 MG CAP PO SCH (08:31)
[2021-01-16] MEDS: ENOXAPARIN SODIUM 40 MG/0.4 ML SYRINGE SQ SCH (08:32)
[2021-01-16] MEDS: KCL 20 MEQ ERTAB PO PRN ×2 (08:33→12:25)
[2021-01-16 12:00] VITALS: BP 110/48
== END 2021-01-16 13:00 | DRG 177 ==
LOC: EDH 01:31 → EDHIP 03:29 → 2AH 05:20
PROVIDERS: ADMIT Family Medicine; ATTEND Family Medicine
DX: U07.1 COVID-19 (principal); J12.82 Pneumonia due to coronavirus disease 2019; J96.21 Acute and chronic respiratory failure with hypoxia; J90 Pleural effusion, not elsewhere classified; J93.83 Other pneumothorax; E87.3 Alkalosis; J98.2 Interstitial emphysema; E86.0 Dehydration; I10 Essential (primary) hypertension; F41.1 Generalized anxiety disorder; Z99.81 Dependence on supplemental oxygen
CPT/HCPCS: 36415; 36600; 71045; 71275; 80048; 80053; 82728; 82803; 82948; 83605; 84145; 84484; 85025; 85378; 85610; 85730; 86140; 87040; 87426; 87804; 93005; 97039; 99291; G0378; J1650; J1815; J2543; J3490; J8540; Q9967; U0003